=== PATIENT | male | born 2000 ===

== ENCOUNTER 2020-10-13 12:55 | Emergency (ER) | payer SELFPAY ==
[~2020-10-13] VITALS: Ht 182.9 cm; Wt 109.1 kg
--- NOTE | 2020-10-13 13:13 | NUR ---
[facility] [employer] NOTIFIED AND CASE OPENED.
--- NOTE | 2020-10-13 15:24 | NUR ---
MELCHOR WITH [facility] [employer] GIVES OK TO RELEASE BODY TO HOME
--- NOTE | 2020-10-13 15:28 | NUR ---
[facility], JOSEPH ALEXARTURO TAKES BODY AT THIS TIME. CARD HANGER PREETI PRESENT
--- NOTE | 2020-10-13 15:40 | NUR ---
[employer] responded to the ED and upon arrival, SW was notified patient is . Patient's identity unknown at time of SW arrival. HARPER made contact with Officer Quentin (ph#[phone]) who provided patient's name, , and address ([address] [place] [address] [address]). Next of kin unknown. 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 HARPER also spoke with Officer Myriam who advised patient's command will notify family. HARPER collaborated the above information to [employer] who advised body has been released to a local home and the will handle notification.
== END 2020-10-13 15:40 | disposition expired ==
LOC: COL.ER 12:55 → EDBD 12:56 → COL.ER 12:56
DX: S31.141A Puncture wound of abdominal wall with foreign body, left upper quadrant without penetration into peritoneal cavity, initial encounter (principal); W34.00XA Accidental discharge from unspecified firearms or gun, initial encounter
CPT/HCPCS: J0171